=== PATIENT | female | born 1985 | race Hispanic/Latino ===

== ENCOUNTER 2018-10-15 09:18 | Day surgery (SDC) | payer MEDICAID ==
[2018-10-15] MEDS ORDERED: DILAUDID IV PRN (09:49)
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
--- NOTE | 2018-10-15 09:50 | Anesthesia Day of Surgery ---
Anesthesia Day of Surgery - Day of Surgery Patient Examined: Yes Patient H&P Reviewed: Yes Patient is NPO: Yes
[2018-10-15] MEDS ORDERED: ANCEF/STERILE WATER 2 GM/20 ML IV NR (10:00)
[2018-10-15] MEDS ORDERED: LACTATED RINGERS 1,000 ML IV SCH (10:00)
[2018-10-15] MEDS ORDERED: VERSED IV NR (10:00)
[2018-10-15] MEDS ORDERED: ZOFRAN IV PRN (10:00)
[2018-10-15 10:24] LABS: Hematocrit 40.3 % (30.3-42.9); Hemoglobin 13.8 gm/dl (10.1-14.3)
[2018-10-15] MEDS ORDERED: SUBLIMAZE ONE (10:41)
[2018-10-15] MEDS ORDERED: DECADRON ONE (10:41)
[2018-10-15] MEDS ORDERED: ZOFRAN ONE (10:41)
[2018-10-15] MEDS ORDERED: TORADOL ONE (10:41)
[2018-10-15] MEDS ORDERED: XYLOCAINE MPF 2% ONE (10:41)
[2018-10-15] MEDS ORDERED: DIPRIVAN 10 MG/ML IV ONE (10:42)
[2018-10-15] MEDS ORDERED: WATER FOR IRRIG STERILE IR ONE (11:35)
--- NOTE | 2018-10-15 12:14 | Post Operative Note ---
Date of procedure: 10/15/18 Pre-op diagnosis: painful bladder Post-op diagnosis: same Findings: glomerulations mild Procedure: cysto hydro rpgs Anesthesia: GETA Surgeon: DAVID CALDERON Estimated blood loss: none Pathology: none Condition: stable Disposition: PACU
--- NOTE | 2018-10-15 12:15 | Discharge Summary ---
Short Stay Discharge Plan Activity: no restrictions, other Weight Bearing Status: Full Weight Bearing Diet: regular, low fat Special Instructions: other (inc fluids ) Follow up with: PERRY HAMMER [Other] - 7 Days DAVID CALDERON MD [Staff Physician] - 14 Days
[2018-10-15 12:52] VITALS: BP 115/66
--- NOTE | 2018-10-15 14:56 | Fluoroscopy Report ---
FLUOROSCOPY RETROGRADE UROGRAPHY: HISTORY: Chronic UTI. FINDINGS: Fluoroscopy was provided by radiology during retrograde urography by the urologist. 10 fluoroscopic images were captured. There is adequate filling of the ureters and intrarenal collecting systems with no filling defects or anatomic abnormalities identified. Please correlate with the procedural report if needed. IMPRESSION: Retrograde pyelograms within normal limits.
--- NOTE | 2018-10-15 15:49 | Operative Report ---
PREOPERATIVE DIAGNOSIS: Urethral pain. POSTOPERATIVE DIAGNOSES: Mild interstitial cystitis with excellent bladder capacity. PROCEDURE: Cystoscopy, hydrodistention, bilateral retrograde. SURGEON: Avery Quiroz MD ANESTHESIA: General. FINDINGS: This woman with dysuria and urethral pain. She now presents for cystoscopy. DESCRIPTION OF PROCEDURE: The patient was brought to the operating room and placed on the operating table. Following induction of anesthesia, the patient placed in lithotomy position and prepped and draped in usual sterile fashion. Cystourethroscopy showed normal urethra, no diverticulum noted. Bladder was well visualized with 30- and 70-degree lenses. The capacity was excellent from 900 to 1100 under anesthesia and about 60 cm of water. At this point, retrograde showed good filling and good drainage with some air bubbles, more on the right than the left. The patient tolerated the procedure well. Bimanual exam was unremarkable. She has tampons, but there were no masses felt. She was brought to recovery room with no significant bleeding, no catheter in stable condition. Family was not in the waiting area. JOB# [id number] ZARINA/VIOLETA
--- NOTE | 2018-10-15 16:37 | Post Anesthesia Evaluation ---
- Post Anesthesia Evaluation Patient Participated: Yes Airway Patent: Yes Stable Respiratory Function: Yes Nausea/Vomiting: No Temp > 96.8F: Yes Pain Manageable: Yes Adequeate Hydration: Yes Anesthesia Complications: No
== END 2018-10-15 13:29 | disposition home or self-care (01) ==
LOC: OR 09:18
PROVIDERS: ATTEND Urology
DX: N30.10 Interstitial cystitis (chronic) without hematuria (principal); G43.909 Migraine, unspecified, not intractable, without status migrainosus; F31.9 Bipolar disorder, unspecified; F41.9 Anxiety disorder, unspecified; F17.210 Nicotine dependence, cigarettes, uncomplicated; Z98.890 Other specified postprocedural states; Z79.899 Other long term (current) drug therapy; Z98.51 Tubal ligation status; Z72.89 Other problems related to lifestyle; Z86.2 Personal history of diseases of the blood and blood-forming organs and certain disorders involving the immune mechanism
CPT/HCPCS: 36415; 52260; 74420; 81025; 85014; 85018; A4217; C1758; J0690; J1100; J1170; J1885; J2250; J2405; J2704; J3010; J7120; Q9967